=== PATIENT | male | born 1980 | race American Indian/Alaskan Native ===

== ENCOUNTER 2021-10-27 22:01 | Emergency (ER) | payer OTHER ==
[2021-10-27 22:06] VITALS: BP 143/100
[2021-10-27] MEDS ORDERED: HYDROcodone/ACETAMINOPHEN 5-325 MG TAB PO ONE (22:15)
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
[2021-10-27] MEDS ORDERED: HYDROcodone/ACETAMINOPHEN 5-325 MG TAB ONE (22:59)
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
== END 2021-10-28 02:13 | disposition home or self-care (01) ==
LOC: ED 22:01
DX: S93.402A Sprain of unspecified ligament of left ankle, initial encounter (principal); I10 Essential (primary) hypertension; Z98.890 Other specified postprocedural states; Y09 Assault by unspecified means; Y93.89 Activity, other specified; Y92.524 Gas station as the place of occurrence of the external cause; Y99.8 Other external cause status
CPT/HCPCS: 99283